=== PATIENT | female | born 1970 | race Caucasian/White ===

== ENCOUNTER 2016-07-18 18:15 | Emergency (ER) | payer OTHER ==
[~2016-07-18] VITALS: Ht 165.1 cm; Wt 56.2 kg
[~2016-07-18 18:15] MED LIST: OXYC-12 PO; SULF1TAB35 PO; [UNRECOGNIZED DRUG - CODE] PO
--- NOTE | 2016-07-18 18:41 | Diagnostic Imaging Report ---
Foot, left, 3 views. COMPARISON: Left ankle radiographs performed concurrently. INDICATION: Left ankle and foot pain after foot was pinned between a cart. TECHNIQUE: Non-weight bearing AP, oblique, and lateral views of the foot. FINDINGS: No fracture or traumatic malalignment. No evidence of metatarsal stress fracture. No uniform body. IMPRESSION: No acute fracture or traumatic malalignment. Dictated by: Dictated on workstation # [id number]
--- NOTE | 2016-07-18 18:41 | Diagnostic Imaging Report ---
Indication: Left ankle injury with pain. Discussion: Three views of the left ankle were obtained, no comparison. The ankle mortise is symmetric. No acute fracture, dislocation, or other osseous abnormality identified. No significant degenerative disease. Alignment is anatomic. Soft tissues are unremarkable. No radiopaque foreign body. Impression: 1. Negative left ankle. Dictated by: Dictated on workstation # [id number]
[2016-07-18 18:52] VITALS: BP 114/73
[2016-07-18] MEDS ORDERED: NAPR500T3 PO (18:53)
[2016-07-18] MEDS ORDERED: TRAM-42 PO (18:53)
--- NOTE | 2016-07-18 18:53 | ED Lower Extremity ---
General Chief Complaint: Lower Extremity Stated Complaint: L FOOT PAIN Nursing Triage Note: PT HERE WITH C/O L ANKLE INJURY. PT REPORTS SHE WAS TRANSFERING A PATIENT IN A BED AND THE BED RAN OVER HER FOOT. Nursing Sepsis Screen: No Definite Risk Source: patient History of Present Illness Time seen by provider: 18:18 Initial Comments PT C/O LEFT ANKLE AND FOOT INJURY PT WORKS IN SURGERY DEPT, AND WAS TRANSFERRING A PT FROM THE SURGERY DEPT TO THE FLOOR--PT WAS IN FRONT OF BED AND OTHER STAFF WERE PUSHING FROM THE BACK. BED WAS GOING AROUND A CORNER, THE WHEEL STRUCK AND THEN RAN OVER THE BACK OF THE PT'S ANKLE AND THEN IT ROLLED OVER THE TOP OF THE PT'S FOOT OCCURRED JUST PRIOR TO ARRIVAL NO PARESTHESIAS OR MOTOR DEFICITS IS VERY PAINFUL TO WALK HAD SPRAIN OF MID FOOT MANY YEARS AGO, OTHERWISE NO PROBLEMS WITH FOOT OR ANKLE Allergies and Home Medications Allergies Uncoded Allergies: NKDA (Allergy, Mild, 11/09/08) Home Medications Naproxen 500 Mg Tablet, 500 MG PO BID, #20 Prescribed by: MILES PICHARDO on 07/18/161852 Oxycodone Hcl/Acetaminophen 1 Each Tablet, 1 EACH PO NEEDED, (Reported) Sennosides 8.6 Mg Tablet, 8.6 MG PO NEEDED, (Reported) Tramadol HCl 50 Mg Tablet, 50 MG PO Q4H, #20 Prescribed by: MILES PICHARDO on 07/18/161852 Constitutional: no symptoms reported Musculoskeletal: see HPI Skin: no symptoms reported Psychiatric/Neurological: No Symptoms Reported Past [id number] Hx Patient Social History Alcohol Use: Denies Use Recreational Drug Use: No Smoking Status: Never a Smoker Recent Foreign Travel: No Contact w/Someone Who Travel: No Recent Infectious Disease Expo: No Recent Hopitalizations: No Immunizations Up To Date Date of Pneumonia Vaccine: Dec 10, 2013 Date of Influenza Vaccine: Dec 10, 2013 Seasonal Allergies Seasonal Allergies: No Surgeries HX Surgeries: Yes (COLONOSCOPY) Respiratory Hx Respiratory Disorders: No Cardiovascular Hx Cardiac Disorders: No Neurological Hx Neurological Disorders: No Genitourinary Hx Genitourinary Disorders: No Gastrointestinal Hx Gastrointestinal Disorders: Yes Gastrointestinal Disorders: Chronic Constipation Musculoskeletal Hx Musculoskeletal Disorders: No Endocrine Hx Endocrine Disorders: No Cancer Hx Cancer: No Psychosocial Hx Psychiatric Problems: No Integumentary HX Skin/Integumentary Disorder: No Physical Exam Vital Signs Vital Sign - Last 12Hours 07/18/16 18:22 Temp 97.8 Pulse 57 Resp 20 B/P (MAP) 114/73 Pulse Ox 99 O2 Delivery Room Air Capillary Refill : Less Than 3 Seconds General Appearance: WD/WN, no apparent distress, other (WALKS WITH LIMP) Legs: bilateral leg normal inspection Knees: bilateral knee normal inspection Ankles: left ankle bone tenderness, left ankle limited range of motion, left ankle pain, left ankle soft tissue tenderness, left ankle other (DIFFUSELY) Feet: left foot bone tenderness, left foot limited range of motion, left foot pain, left foot soft tissue tenderness, left foot other (ENTIRE DEAN OF STUDENTS-- SPARING TOES. DISTAL MOTOR/SENSORY/VASCULAR INTACT) Neurologic/Tendon: normal sensation, normal motor functions, normal tendon functions Neurologic/Psychiatric: body sander II-XII nml as tested, no motor/sensory deficits, alert, normal mood/affect, oriented x 3 Skin: normal color, warm/dry Splinting and Joint Reduction : Immobilizers: Step Light Walker s/m/lg Progress/Results/Core Measures Results/Orders My Orders Orders - MILES PICHARDO DO Foot, Left, 3 Views (07/18/16 18:18) Ankle, Left, 3 Views (07/18/16 18:18) Steplite (07/18/16 18:49) Vital Signs/I&O Vital Sign - Last 12Hours 07/18/16 07/18/16 18:22 18:52 Temp 97.8 97.8 Pulse 57 57 Resp 20 20 B/P (MAP) 114/73 Pulse Ox 99 99 O2 Delivery Room Air Blood Pressure Mean: 87 Diagnostic Imaging Comments XRAYS LEFT ANKLE AND LEFT FOOT--NO ACUTE PROCESS, PER RADIOLOGIST REPORTS 184 Reviewed: Reviewed by Me Departure Impression Impression: Primary Impression: LEFT FOOT AND ANKLE SPRAIN AND CONTUSION Disposition: 01 HOME, SELF-CARE Condition: Stable Departure-Patient Inst. Patient Instructions: Ankle Sprain (DC), Contusion (DC) Add. Discharge Instructions: ICE TO AREA AT 20 MINUTE INTERVALS ELEVATE FOOT MUCH POSSIBLE WEAR BOOT AT ALL TIMES FOLLOW UP WITH [facility]UP[facility]ALTH TOMORROW FOR FURTHER CARE All discharge instructions reviewed with patient and/or family. Voiced understanding. Scripts Tramadol HCl (Ultram) 50 Mg Tablet 50 MG PO Q4H, #20 TAB Prov: MILES PICHARDO DO 07/18/16 Naproxen (Naproxen) 500 Mg Tablet 500 MG PO BID, #20 TAB Prov: MILES PICHARDO DO 07/18/16 MILES PICHARDO DO July 18, 2016 18:53
== END 2016-07-18 18:52 | disposition home or self-care (01) ==
LOC: EDUNIT# 18:15 → ER 18:18
DX: S93.402A Sprain of unspecified ligament of left ankle, initial encounter (principal); S90.32XA Contusion of left foot, initial encounter; W22.8XXA Striking against or struck by other objects, initial encounter; Y92.230 Patient room in hospital as the place of occurrence of the external cause; Y99.0 Civilian activity done for income or pay
CPT/HCPCS: 73610; 73630; 99283

== ENCOUNTER → 2016-08-02 | Outpatient (REF) ==
[~2016-08-02] MED LIST changes: +NAPR500T3 PO; +TRAM-42 PO
--- NOTE | 2016-08-02 14:23 | Diagnostic Imaging Report ---
Three views of the left ankle. INDICATION: Left ankle pain. FINDINGS: No fracture, dislocation or radiopaque foreign body. The ankle mortise is normal in configuration. IMPRESSION: Unremarkable exam. Dictated by: Dictated on workstation # [id number]
--- NOTE | 2016-08-02 14:27 | Diagnostic Imaging Report ---
EXAMINATION: Three views of the left foot. INDICATION: Left foot pain. FINDINGS: There is an os peroneus seen incidentally and similar to prior exam of 06/18/2016. No fracture, dislocation, or radiopaque foreign body is seen. Joint alignment is satisfactory. IMPRESSION: Unremarkable exam. Dictated by: Dictated on workstation # [id number]
== END | disposition home or self-care (01) ==
LOC: OCC 13:50
PROVIDERS: ATTEND Nurse Practitioner Family
CPT/HCPCS: 73610; 73630